=== PATIENT | male | born 1980 | race Two or more races ===

== ENCOUNTER 2024-08-23 02:38 | Inpatient (IN) | payer MEDICAID ==
[~2024-08-23] VITALS: Ht 172.7 cm; Wt 85.7 kg
[2024-08-23] MEDS ORDERED: LORAZEPAM INJ 2 MG/ML VIAL ONE ×2 (02:50→05:11)
[2024-08-23] MEDS: LORAZEPAM INJ 2 MG/ML VIAL IV ONE ×2 (03:02→05:17)
[2024-08-23 03:07] LABS: BASOPHILS % (AUTO) 0.4 % (0.0-2.0); HEMATOCRIT 43 % (39-51); HEMOGLOBIN 14.6 g/dL (13.5-17.5); LYMPHOCYTES # (AUTO) 1.4 K/uL (0.8-4.8); LYMPHOCYTES % (AUTO) 18.5 % (20.0-44.0); MEAN CORPUSCULAR HEMOGLOBIN 28 PG (26.0-33.0); MEAN CORPUSCULAR HGB CONC 34 g/dl (31.0-36.0); MEAN CORPUSCULAR VOLUME 82 fL (80-96); MONOCYTES # (AUTO) 0.4 K/uL (0.1-1.30); MONOCYTES % (AUTO) 4.8 % (2.0-12.0); NEUTROPHILS # (AUTO) 5.6 K/uL (1.8-8.9); NEUTROPHILS % (AUTO) 76.3 % (43.0-81.0); PLATELET COUNT (AUTO) 240 K/uL (150-450); RED BLOOD CELL COUNT(AUTO) 5.22 MIL/uL (4.5-6.0); RED CELL DISTRIBUTION WIDTH 13.5 % (11.5-15.0); WHITE BLOOD COUNT (AUTO) 7.3 K/uL (4.3-11.0)
[2024-08-23] MEDS: IV NS 0.9% 1,000 ML BAG IV ONE (03:08)
[2024-08-23 03:21] LABS: CARBON DIOXIDE 24 mmol/L (21-32); CHLORIDE 103 mmol/L (98-107); CREATININE 1.4 mg/dL (0.6-1.3); GLUCOSE 150 mg/dL (74-106); POTASSIUM 3.4 mmol/L (3.5-5.1); SODIUM SERUM 142 mmol/L (136-145); UREA NITROGEN, BLOOD 15 mg/dL (7-18)
[2024-08-23] MEDS ORDERED: MORPHINE SULFATE INJ 4 MG/ML DISP.SYRIN ONE (03:45)
[2024-08-23] MEDS ORDERED: ONDANSETRON HCL/PF 4 MG/2 ML VIAL ONE (03:46)
[2024-08-23] MEDS ORDERED: ASPIRIN 325 MG TABLET ONE (03:46)
[2024-08-23] MEDS: ONDANSETRON HCL/PF - ER 4 MG/2 ML VIAL IV ONE (03:54)
[2024-08-23] MEDS: MORPHINE SULFATE INJ 2 MG/ML DISP.SYRIN IV ONE (03:54)
[2024-08-23] MEDS: ASPIRIN EC 325 MG TABLET.DR PO ONE (03:54)
[2024-08-23] MEDS ORDERED: MAG HYDROX/AL HYDROX/SIMETH 30 ML UDC PO PRN (06:30)
[2024-08-23] MEDS ORDERED: IV NS 0.9% 1,000 ML IV PRN (06:30)
[2024-08-23] MEDS ORDERED: ONDANSETRON HCL/PF 4 MG/2 ML VIAL IVP PRN (06:30)
[2024-08-23] MEDS ORDERED: ACETAMINOPHEN 325 MG TABLET PO PRN (06:30)
[2024-08-23] MEDS ORDERED: LORAZEPAM 1 MG TABLET PO PRN (06:30)
[2024-08-23] MEDS ORDERED: NITROGLYCERIN 0.4 MG/TAB BOTTLE SL PRN (06:30)
[2024-08-23] MEDS ORDERED: MAGNESIUM HYDROXIDE 30 ML UDC PO PRN (06:30)
[2024-08-23] MEDS ORDERED: TEMAZEPAM 15 MG CAPSULE PO PRN (06:30)
[2024-08-23] MEDS ORDERED: HYDROCODONE/APAP 5/325MG TABLET PO PRN (06:30)
[2024-08-23] MEDS ORDERED: Z GUARD REMEDY 4 OZ OINT TP PRN (06:30)
[2024-08-23 08:08] VITALS: O2SAT 97
[2024-08-23] MEDS: PANTOPRAZOLE 40 MG TABLET.DR PO SCH (09:50)
[2024-08-23] MEDS: ASPIRIN 81 MG TAB.CHEW PO SCH (09:50)
[2024-08-23] MEDS: ENOXAPARIN SODIUM 40 MG/0.4 ML DISP.SYRIN SQ SCH (09:51)
[2024-08-23] MEDS: POTASSIUM CHLORIDE 20 MEQ TAB.PRT.SR PO SCH (10:24)
[2024-08-23 12:00] VITALS: BP 153/84; TEMP 98.1; O2SAT 100
[2024-08-23 16:00] VITALS: BP 147/84; TEMP 97; O2SAT 99
[2024-08-23 20:00] VITALS: BP 141/85; TEMP 97.3; O2SAT 97
[2024-08-24 00:46] VITALS: BP 132/78; TEMP 97.5; O2SAT 97
[2024-08-24 04:58] VITALS: BP 125/82; TEMP 98.4; O2SAT 98
[2024-08-24 06:42] LABS: BASOPHILS % (AUTO) 0.2 % (0.0-2.0); EOSINOPHILS # (AUTO) 0.1 K/uL (0.0-0.7); HEMATOCRIT 43 % (39-51); HEMOGLOBIN 14.3 g/dL (13.5-17.5); LYMPHOCYTES # (AUTO) 1.9 K/uL (0.8-4.8); LYMPHOCYTES % (AUTO) 31.7 % (20.0-44.0); MEAN CORPUSCULAR HEMOGLOBIN 28 PG (26.0-33.0); MEAN CORPUSCULAR HGB CONC 34 g/dl (31.0-36.0); MEAN CORPUSCULAR VOLUME 84 fL (80-96); MONOCYTES # (AUTO) 0.5 K/uL (0.1-1.30); MONOCYTES % (AUTO) 7.4 % (2.0-12.0); NEUTROPHILS # (AUTO) 3.6 K/uL (1.8-8.9); NEUTROPHILS % (AUTO) 58.7 % (43.0-81.0); PLATELET COUNT (AUTO) 190 K/uL (150-450); RED BLOOD CELL COUNT(AUTO) 5.08 MIL/uL (4.5-6.0); RED CELL DISTRIBUTION WIDTH 13.8 % (11.5-15.0); WHITE BLOOD COUNT (AUTO) 6.1 K/uL (4.3-11.0)
[2024-08-24 07:16] LABS: CALCIUM, SERUM 8.7 mg/dL (8.5-10.1); MAGNESIUM 2.3 mg/dL (1.8-2.4); PHOSPHORUS 3.7 mg/dL (2.5-4.9); POTASSIUM 4.1 mmol/L (3.5-5.1)
[2024-08-24 07:28] LABS: THYROID STIMULATING HORMONE 4.76 uIU/mL (0.358-3.74)
[2024-08-24 08:00] VITALS: BP 132/88; TEMP 98.6; O2SAT 99
[2024-08-24] MEDS: ATORVASTATIN 40 MG TABLET PO SCH (08:48)
[2024-08-24 12:00] VITALS: BP 157/100; TEMP 98.1; O2SAT 100
[2024-08-24] MEDS ORDERED: METOPROLOL TARTRATE 50 MG TABLET PO SCH (12:00)
[2024-08-24] MEDS ORDERED: IOHEXOL-350 100 ML VIAL IV ONE (12:16)
== END 2024-08-24 12:35 | disposition left against medical advice (07) | DRG 812 ==
LOC: ER 02:49 → TELE 07:41
PROVIDERS: ADMIT Nurse Practitioner Acute Care; ATTEND Nurse Practitioner Acute Care
DX: T43.651A Poisoning by methamphetamines accidental (unintentional), initial encounter (principal); N17.0 Acute kidney failure with tubular necrosis; I21.4 Non-ST elevation (NSTEMI) myocardial infarction; G92.9 Unspecified toxic encephalopathy; Z79.82 Long term (current) use of aspirin; Z79.899 Other long term (current) drug therapy; F19.10 Other psychoactive substance abuse, uncomplicated; E78.5 Hyperlipidemia, unspecified; E03.9 Hypothyroidism, unspecified; F17.200 Nicotine dependence, unspecified, uncomplicated; F41.0 Panic disorder [episodic paroxysmal anxiety]; Z53.29 Procedure and treatment not carried out because of patient's decision for other reasons; M62.82 Rhabdomyolysis; Y92.009 Unspecified place in unspecified non-institutional (private) residence as the place of occurrence of the external cause; I51.9 Heart disease, unspecified
CPT/HCPCS: 36415; 71045-TC; 80048-TC; 80061-TC; 82550-TC; 83735-TC; 84100-TC; 84443-TC; 84484-TC; 85025-TC; 93307-TC; A4223; G0378; J1650; J2060; J2270; J2405; J7030; Q9967